=== PATIENT | male | born 1970 | race Caucasian/White ===

== ENCOUNTER 2018-04-18 06:33 | Emergency (ER) | payer BC ==
--- NOTE | 2018-04-18 07:44 | ED ---
Lower Extremity - HPI Summary HPI Summary: patient is a 47-year-old male with history of diabetes and hypertension presenting to the ED with left calf pain. He states he recently returned from a long flight, approximately 20 hours at which time he developed moderate left calf pain. He denies any trauma or strain to the area. He never injured catheter in the past. Denies any erythema, swelling or warmth to the calf. He is able to extend and flex at the knee as well as ankle joint without pain. He states he is otherwise well, continues to take his at home medications daily. He does not take any anticoagulation medications at this time. No history of DVT or PE. Denies any smoking history. - History of Current Complaint Chief Complaint: EDExtremityLower Stated Complaint: LEG PAIN Time Seen by Provider: 04/18/18 06:47 Hx Obtained From: Patient Onset of Pain: Minutes Onset/Duration: Minutes Severity Initially: Moderate Severity Currently: Moderate Pain Intensity: 0 Pain Scale Used: 0-10 Numeric Timing: Constant Location: Is Discrete @ - left calf pain Associated Signs And Symptoms: Negative: Swelling, Redness, Bruising, Fever Aggravating Factor(s): Standing, Ambulation Alleviating Factor(s): Rest Able to Bear Weight: No - Risk Factors Gout Risk Factors: Negative DVT Risk Factors: Negative Septic Arthritis Risk Factor: Negative - Allergies/Home Medications Allergies/Adverse Reactions: Allergies Allergy/AdvReac Type Severity Reaction Status Date / Time aspirin Allergy Anaphylatic Verified 04/18/18 06:41 Shock Home Medications: Home Medications ZyrTEC 10 MG TAB* 04/18/18 [History] PMH/Surg Hx/FS Hx/Imm Hx Previously Healthy: Yes Endocrine/Hematology History: Denies: Hx Sickle Cell Disease Cardiovascular History: Denies: Other Cardiovascular Problems/Disorders GI History: Reports: Hx Gastroesophageal Reflux Disease - ON MEDICATION, Hx Hiatal Hernia - SMALL HIATAL HERNIA History: Denies: Other Problems/Disorders Musculoskeletal History: Denies: Other Musculoskeletal History Sensory History: Denies: Hx Contacts or Glasses, Hx Hearing Aid Opthamlomology History: Denies: Hx Contacts or Glasses Neurological History: Denies: Other Neuro Impairments/Disorders - Surgical History Surgery Procedure, Year, and Place: ENT- LYRANGEAL POLYP REMOVAL - 2010 [facility] [place]. TONSILS - CHILD Hx Anesthesia Reactions: Yes - INTENSIVE GENERALIZED SEVERE MUSCLE PAIN - Immunization History Hx Pertussis Vaccination: No Immunizations Up to Date: Yes Infectious Disease History: No Infectious Disease History: Reports: Hx Hepatitis - HEP A MANY YEARS AGO, Traveled Outside the [place] in Last 30 Days - Social History Occupation: Unemployed Lives: With Family Alcohol Use: Occasionally Hx Substance Use: No Substance Use Type: Reports: None Hx Tobacco Use: No Smoking Status (MU): Former Smoker Review of Systems Constitutional: Negative Negative: Fever, Chills, Fatigue, Skin Diaphoresis Negative: Palpitations, Chest Pain Negative: Shortness Of Breath, Cough Genitourinary: Negative Positive: no symptoms reported, see HPI Positive: Myalgia - left calf pain. Negative: Arthralgia Skin: Negative Neurological: Negative All Other Systems Reviewed And Are Negative: Yes Physical Exam Triage Information Reviewed: Yes Vital Signs On Initial Exam: Initial Vitals Temp Pulse Resp BP Pulse Ox 97.7 F 76 16 144/91 97 04/18/18 06:38 04/18/18 06:38 04/18/18 06:38 04/18/18 06:38 04/18/18 06:38 Vital Signs Reviewed: Yes Appearance: Positive: Well-Appearing, No Pain Distress Skin: Positive: Warm, Skin Color Reflects Adequate Perfusion Head/Face: Positive: Normal Head/Face Inspection Eyes: Positive: EOMI, Conjunctiva Clear Neck: Positive: No Lymphadenopathy Respiratory/Lung Sounds: Positive: Clear to Auscultation, Breath Sounds Present Diagnostics - Vital Signs Vital Signs Temp Pulse Resp BP Pulse Ox 04/18/18 06:38 97.7 F 76 16 144/91 97 - Laboratory Lab Statement: Any lab studies that have been ordered have been reviewed, and results considered in the medical decision making process. Lower Extremity Course/Dx - Course Course Of Treatment: During the course of treatment, the patient is evaluated for left calf pain following a 20 hour flight. Ultrasound obtained and is negative for DVT. There is no erythema, palpable cord, swelling. There is tenderness on palpation and positive Homans sign. He is diagnosed with muscle strain and encouraged moist heat and ibuprofen for relief. - Diagnoses Provider Diagnoses: Muscle strain Discharge - Sign-Out/Discharge Documenting (check all that apply): Patient Departure - Discharge Plan Condition: Stable Disposition: HOME Referrals: No Primary Care Phys,NOPCP [Primary Care Provider] - Additional Instructions: No evidence of a blood clot Heat and ibuprofen may help with symptoms - Billing Disposition and Condition Condition: STABLE Disposition: Home
--- NOTE | 2018-04-18 08:18 | RAD ---
INDICATION: Recent long plane flight. LEFT lower extremity pain. COMPARISON: No relevant prior exams available on the [facility] [place] PACS for comparison. TECHNIQUE: Ho scale, color Doppler, and spectral analysis of the deep veins of the LEFT lower extremity. Vessel compression, phasicity, and augmentation assessed. REPORT: The LEFT common femoral, great saphenous, profunda femoral, femoral, popliteal, peroneal, and posterior tibial veins are patent. Patency of the RIGHT common femoral vein documented. IMPRESSION: No evidence for LEFT lower extremity deep venous thrombosis.
[2018-04-18 08:56] VITALS: BP 124/90
== END 2018-04-18 08:55 | disposition home or self-care (01) ==
LOC: ED 06:33
DX: S86.912A Strain of unspecified muscle(s) and tendon(s) at lower leg level, left leg, initial encounter (principal); Z87.891 Personal history of nicotine dependence; K21.9 Gastro-esophageal reflux disease without esophagitis; K44.9 Diaphragmatic hernia without obstruction or gangrene; E11.9 Type 2 diabetes mellitus without complications; I10 Essential (primary) hypertension; X58.XXXA Exposure to other specified factors, initial encounter; Y92.9 Unspecified place or not applicable
CPT/HCPCS: 99282

== ENCOUNTER 2019-08-12 13:43 | Emergency (ER) | payer BC ==
--- NOTE | 2019-08-12 14:22 | ED ---
Psychiatric Complaint - HPI Summary HPI Summary: 48-year-old male with no significant past medical history presents to the emergency department today complaining of feelings of depression. Patient denies suicidal ideation or past attempts of suicidal gesture. Patient denies homicidal ideation. Patient states he seen a counselor for one session which helped slightly. Patient states he is having "memories" of past trauma which is causing him significant distress. Patient denies recent recreational drug use and alcohol use. Patient otherwise feels well and stated he only has a mild common cold. Patient denies fever, chest pain, abdominal pain, nausea, vomiting, diarrhea, rash. Patient is interested in mental health consult and evaluation for his feelings of depression. - History Of Current Complaint Chief Complaint: EDPsychosocial Time Seen by Provider: 08/12/19 14:11 Hx Obtained From: Patient Onset/Duration: Gradual Onset Timing: Constant Severity Initially: Moderate Severity Currently: Severe Character: Depressed, Anxious Alleviating Factor(s): Counseling Associated Signs And Symptoms: Positive: Sleep Disturbance, Appetite Change, Social Withdrawal, Social Isolation Has Suicidal: Denies: Thoughts, With A Plan Has Homicidal: Denies: Thoughts, Demonstrates Gesture - Allergies/Home Medications Allergies/Adverse Reactions: Allergies Allergy/AdvReac Type Severity Reaction Status Date / Time aspirin Allergy Anaphylatic Verified 08/12/19 13:47 Shock PMH/Surg Hx/FS Hx/Imm Hx Endocrine/Hematology History: Denies: Hx Sickle Cell Disease Cardiovascular History: Denies: Other Cardiovascular Problems/Disorders GI History: Reports: Hx Gastroesophageal Reflux Disease - ON MEDICATION, Hx Hiatal Hernia - SMALL HIATAL HERNIA History: Denies: Other Problems/Disorders Musculoskeletal History: Denies: Other Musculoskeletal History Sensory History: Denies: Hx Contacts or Glasses, Hx Hearing Aid Opthamlomology History: Denies: Hx Contacts or Glasses Neurological History: Denies: Other Neuro Impairments/Disorders - Surgical History Surgery Procedure, Year, and Place: ENT- LYRANGEAL POLYP REMOVAL - 2010 [facility] [place]. TONSILS - CHILD Hx Anesthesia Reactions: Yes - INTENSIVE GENERALIZED SEVERE MUSCLE PAIN Infectious Disease History: No Infectious Disease History: Reports: Hx Hepatitis - HEP A MANY YEARS AGO Denies: Traveled Outside the [place] in Last 30 Days - Social History Alcohol Use: Occasionally Hx Substance Use: No Substance Use Type: Reports: None Hx Tobacco Use: No Smoking Status (MU): Former Smoker Review of Systems Constitutional: Negative Eyes: Negative ENT: Negative Cardiovascular: Negative Respiratory: Negative Gastrointestinal: Negative Genitourinary: Negative Musculoskeletal: Negative Skin: Negative Neurological/Mental Status: Negative Positive: Anxious, Depressed All Other Systems Reviewed And Are Negative: Yes Physical Exam - Summary Physical Exam Summary: Patient has a tearful affect synchronized and conversation. Patient makes good eye contact. Triage Information Reviewed: Yes Vital Signs On Initial Exam: Initial Vitals Temp Pulse Resp BP Pulse Ox 98.7 F 87 15 157/97 99 08/12/19 13:44 08/12/19 13:44 08/12/19 13:44 08/12/19 13:44 08/12/19 13:44 Vital Signs Reviewed: Yes Appearance: Positive: Well-Appearing, No Pain Distress, Well-Nourished Skin: Positive: Warm, Skin Color Reflects Adequate Perfusion Eyes: Positive: EOMI, JACOBY ENT: Positive: Hearing grossly normal Respiratory/Lung Sounds: Positive: Clear to Auscultation, Breath Sounds Present Cardiovascular: Positive: RRR, S1, S2 Abdomen Description: Positive: Nontender, Soft. Negative: Distended, Guarding Bowel Sounds: Positive: Present Musculoskeletal: Positive: Strength/ROM Intact Neurological: Positive: Sensory/Motor Intact, Alert, Oriented to Person Place, Time, Normal Gait, Facial Symmetry, Speech Normal Psychiatric: Positive: Normal, Affect/Mood Appropriate AVPU Assessment: Alert Procedures - Sedation Patient Received Moderate/Deep Sedation with Procedure: No Diagnostics - Vital Signs Vital Signs Temp Pulse Resp BP Pulse Ox 08/12/19 13:44 98.7 F 87 15 157/97 99 - Laboratory Lab Statement: Any lab studies that have been ordered have been reviewed, and results considered in the medical decision making process. Course/Dx - Course Course Of Treatment: Patient was evaluated in the emergency department today for feelings of depression. Patient said he had no thoughts of suicidal ideation or attempts at suicide. Patient has no homicidal ideation. Vitals noted and stable. Patient had no medical problems requiring intervention at this time. The behavioral health unit was consulted for further evaluation and treatment of this patient. Behavioral health staff found the patient not to be a danger to himself and he is remaining to deny suicidal ideation. Patient endorses wanting further mental health care and was given multiple referrals to practitioners in the area. Patient was given a dose of hydroxyzine in the emergency department as well as a prescription for outpatient treatment of anxiety and depression. Patient discharged with outpatient follow-up. - Differential Dx/Clinical Impression Differential Diagnosis/HQI/PQRI: Positive: Acute Psychosis, Anxiety, Bipolar Disorder, Depression, Homicidal Ideation, Homicidal Gesture, Suicide Attempt, Suicidal Ideation, Suicidal Gesture Provider Diagnosis: Depression Discharge ED - Sign-Out/Discharge Documenting (check all that apply): Patient Departure - Discharge Plan Condition: Stable Disposition: HOME Prescriptions: hydrOXYzine HCL [Hydroxyzine HCl] 50 mg PO Q6HR #12 tablet Patient Education Materials: Depression (ED) Referrals: Lynne Chanel MD [Primary Care Provider] - 3 Days Additional Instructions: Please take hydroxyzine 50mg every 6 hours as needed for anxiety and depression. Please follow up with a mental health specialist such as a counselor , psychologist, psychiatrist in 3-5 days for further evaluation and management. Please return to the emergency department immediately if you develop any new or worsening symptoms including suicidal ideation. - Billing Disposition and Condition Condition: STABLE Disposition: Home - Attestation Statements Provider Attestation: I was available for consultation for this patient. I did not evaluate the patient or participate in any medical decision making or disposition decisions unless I am specifically named in the chart as having consulted on the patient. If I have consulted on the patient, please see my own ED note on the patient encounter. Evangelina Renteria MD
[2019-08-12] MEDS ORDERED: hydrOXYzine HCL TAB* 25 MG PO ONE (16:23)
[2019-08-12 16:40] VITALS: BP 119/69
== END 2019-08-12 16:39 | disposition home or self-care (01) ==
LOC: ED 13:43
DX: F32.9 Major depressive disorder, single episode, unspecified (principal); K21.9 Gastro-esophageal reflux disease without esophagitis; Z87.891 Personal history of nicotine dependence; Z79.899 Other long term (current) drug therapy; Z88.8 Allergy status to other drugs, medicaments and biological substances
CPT/HCPCS: 99282; A9270-GY